=== PATIENT | female | born 1950 | race Caucasian/White ===

== ENCOUNTER → 2016-04-25 | Outpatient (CLI) | payer MEDICARE, OTHER ==
[~2016-04-25] MED LIST: ASPIR-TRIN325 MG PO; CILOSTAZOL50 MG PO; CRESTOR40 MG PO; FLAX SEED OIL1000 MG PO; ISOSORBIDE MONO60 MG PO; NORCO 5-325 TA1 EACH PO; PLAVIX 75 MG TA75 MG PO; TOPROL XL100 MG PO
== END ==
LOC: KOH-I 11:57
DX: M79.642 Pain in left hand (principal)
CPT/HCPCS: 73130